=== PATIENT | female | born 1960 | race American Indian/Alaskan Native ===

== ENCOUNTER 2018-05-29 10:15 | Day surgery (SDC) | payer BC ==
[~2018-05-29 10:15] MED LIST: WATER FOR IRRIG STERILE IR ONE; WATER FOR IRRIG STERILE ONE
[2018-05-29] MEDS ORDERED: NACL 0.9% 1000 ML 1,000 ML IV SCH (11:00)
[2018-05-29] MEDS ORDERED: DIPRIVAN 10 MG/ML IV ONE ×5 (13:28→14:28)
[2018-05-29] MEDS ORDERED: GI SPOT IJ ONE (13:45)
--- NOTE | 2018-05-29 14:45 | Anesthesia Consultation ---
Anesthesia Consult and Med Hx Date of service: 05/29/18 - Airway Anesthetic Teeth Evaluation: Good, Poor ROM Head & Neck: Adequate Mental/Hyoid Distance: Adequate Mallampati Class: Class II Intubation Access Assessment: Probably Good - Pulmonary Exam CTA: Yes - Cardiac Exam Cardiac Exam: RRR - Pre-Operative Health Status ASA Pre-Surgery Classification: ASA2 Proposed Anesthetic Plan: MAC - Pulmonary Hx Smoking: No Hx Respiratory Symptoms: No - Cardiovascular System Hx Hypertension: No Hx Heart Attack/AMI: No Hx Angina: No - Central Nervous System Hx Neuromuscular Disorder: No - Gastrointestinal Hx Gastroesophageal Reflux Disease: No - Endocrine Hx Renal Disease: No Hx Liver Disease: No Hx Thyroid Disease: No - Hematic Hx Sickle Cell Disease: No - Other Systems Hx Alcohol Use: No - Additional Comments Anesthesia Medical History Comments: No GAC, No FHAC
[2018-05-29 15:20] VITALS: BP 112/63
--- NOTE | 2018-05-29 15:59 | History and Physical Report ---
History of Present Illness Date of examination: 05/29/18 Date of admission: 05/29/2018 Chief complaint: Personal history of large colon polyp. Patient needing polypectomy with endoscopic because her resection. History of present illness: Patient's a 57-year-old female who presented with a history of colon polyps. She had a colonoscopy recently was told that she had a 3.5 cm polyp. She was referred for surgical resection. She presented because she had a family member who had endoscopic mucosa resection she was reviewed and now presents for colonoscopy for endoscopic mucosa resection. She denies any complaints otherwise. Review of Systems Constitution: Negative for chills, decreased appetite, diaphoresis, fever, weakness and malaise/fatigue. HENT: Negative for sore throat. Eyes: Positive for blurred vision. Cardiovascular: Negative. Respiratory: Positive for shortness of breath. Endocrine: Negative. Hematologic/Lymphatic: Negative. Skin: Negative. Musculoskeletal: Positive for joint pain, joint swelling, myalgias and stiffness. Gastrointestinal: Negative. Genitourinary: Negative. Neurological: Positive for dizziness. Psychiatric/Behavioral: Negative. Allergic/Immunologic: Negative. All other systems reviewed and are negative. Physical Exam Constitutional: Se is oriented to person, place, and time. She appears well- developed and well-nourished. She appears comfortable in no distress HEENT: Head: Normocephalic and atraumatic. Mouth/Throat: No oropharyngeal exudate. Neck: Normal range of motion. Neck supple. No JVD present. Cardiovascular: Normal rate, regular rhythm and normal heart sounds. Pulmonary/Chest: Effort normal and breath sounds normal. Abdominal: Soft. Nontender. No hepatosplenomegaly, no other palpable masses, normal bowel sounds Musculoskeletal: Normal range of motion. Neurological: He is alert and oriented to person, place, and time. Skin: Skin is warm, dry and intact. Psychiatric: He has a normal mood and affect. Medications and Allergies Allergies Allergy/AdvReac Type Severity Reaction Status Date / Time No Known Allergies Allergy Verified 05/29/18 10:31 Home Medications Medication Instructions Recorded Confirmed Last Taken Type Adult Low Dose Aspirin EC 81 mg PO DAILY 05/29/18 05/29/18 04/12/18 History Vitamin D2 50,000 units PO QWEEK 05/29/18 05/29/18 04/12/18 History Active Meds: Active Medications Sodium Chloride (Nacl 0.9% 1000 Ml) 1,000 mls @ 50 mls/hr IV DIRECT FLORIN Last Admin: 05/29/18 11:17 Dose: 50 mls/hr Documented by: Exam - Constitutional Vitals: Temp Pulse Resp BP Pulse Ox 99.0 F 71 15 112/63 97 05/29/18 14:46 05/29/18 15:16 05/29/18 15:16 05/29/18 15:16 05/29/18 15:16 Assessment and Plan Assessment: Colorectal cancer screening. Plan: A full colonoscopy will be done to evaluate patient. The indications for colonoscopy have been reviewed with the patient. The potential benefits as well as possible complications related to the procedure have been discussed. Patient by history took adequate preparation. Additional recommendations will be made depending on the findings.
--- NOTE | 2018-05-29 16:29 | Discharge Summary ---
Short Stay Discharge Plan Activity: advance as tolerated Weight Bearing Status: Weight Bear as Tolerated Diet: regular Additional Instructions: Post Sedation D/C Instructions When you return home you may resume your regular diet unless otherwise directed. -Go directly home from the hospital and rest quietly. You may resume normal activities tomorrow. -Do NOT drive, return to work, operate any machinery or make any important personal or business decisions today. -Do NOT drink any alcohol or take nerve or sleeping drugs. They add to the effects of the medicine still present in your body. - NO NSAIDS(IBUPROFEN, GOODY POWDER,ETC) OR ASPIRIN NEXT 14 DAYS -CALL DR. DUNNE'S OFFICE TO CONFIRM APPOINT TO FOLLOW UP ON BIOPSIES Follow up with: PRIMARY CARE, [Primary Care Provider] - 7 Days
--- NOTE | 2018-05-29 16:29 | Operative Report ---
Operative Report Operative Report: Date of procedure: 05/29/2018 Procedure: Colonoscopy with submucosal injection, snare polypectomy with Hem oclip application for closure of defect at the polypectomy site, ablation of colon polyps, multiple hot biopsy polypectomies. Submucosal injection with tattoo of polypectomy site. Attending physician: Graeme Cormier M.D. Oil Developer: Graeme Cormier M.D. Indication: Patient is a 57-year-old female who presents with a personal history of a large colon polyp in the ascending colon status post colonoscopy and biopsy of the polyp showing a tubular adenoma. Patient had been referred for possible surgical resection, but prefers a non surgical approach. This colonoscopy serves to evaluate patient so that treatment may be directed based on the findings. Consent: Informed consent was obtained after advising the patient and family regarding nature of this procedure, its indications, potential benefits as well as possible complications including but not limited to bleeding perforation and adverse reaction to medication, infection as well as other cardiopulmonary complications. An informed written and verbal consent was then obtained after due opportunity was provided for questions and answers. Monitoring: Patient was monitored continuously with pulse oximetry and electrocardiographic recordings as well as blood pressure recordings. Vital signs remained stable throughout this procedure with no untoward events. Preoperative assessment: Patient was assessed immediately prior to this p rocedure for capacity to tolerate monitored anesthesia care and moderate sedation as well as general anesthesia. Patient's ASA classification is 2, Mallampati class is 2, Hyomental distance is 3. Instrument: [employer] video colonoscope Medications: Propofol given intravenously in divided doses. For details please refer to anesthesia records. Description of procedure: Patient was placed in the left lateral decubitus position after achieving sedation, a digital rectal examination was performed following which the colonoscope was introduced into the anal verge and advanced to the cecum which was identified by the cecal valve, the appendiceal orifice, as well as by the cecal strap and direct transillumination. The colonoscope was subsequently withdrawn with careful inspection of all mucosal surfaces. Patient tolerated this procedure well and was subsequently taken to the recovery room. The following findings were noted. Findings: Patient had a large sessile 3.5- 4 cm polyp in the proximal ascending colon. This was elevated with submucosal injection of saline and removed by snare electrocautery using a stiff hexagonal captivator snare and retrieved. The edge of the polyp site, was further treated with a hot biopsy forceps using avulsion technique, to remove any residual polyp tissue. Subsequently, the edges of the polypectomy site was then ablated completely. The defect at the polypectomy site was closed with multiple Hemoclips. In all, 5 hemoclips were used. After removing the polyp, the proximal and distal margins of the polypectomy site were then tattooed using submucosal injection of spot. In the sigmoid colon, patient had 3 flat polyps measuring 5-7 mm each. All these polyps were removed by hot biopsy polypectomy and retrieved. Also, 4 additional diminutive flat polyps were seen in the sigmoid colon. These were ablated completely in the sigmoid colon. In the rectum, patient had 3 additional flat polyps measuring 5-7 mm again. These again were removed by hot biopsy polypectomy and retrieved. Patient had some diminutive diverticula in the sigmoid and descending colon. The patient also had some mild diverticulosis in the ascending colon. The rest of the colon including the cecum was normal. On the retroflex view at the anal verge, patient had internal hemorrhoids. Impression: Proximal ascending colon polyp status post submucosal injection, snare polypectomy avulsion hot biopsy forceps and ablation of polypectomy site and Hemoclip application. Also tattoo of proximal and distal margins of polypectomy site. Sigmoid colon polyps status post multiple hot biopsy polypectomies Sigmoid colon polyp status post ablation Rectal polyps status post hot biopsy polypectomy Mild diverticulosis. Internal hemorrhoids Plan: Follow pathology report High-fiber diet. Repeat colonoscopy in 6-12 months
== END 2018-05-29 10:16 | disposition home or self-care (01) ==
LOC: GIO 10:15
PROVIDERS: ATTEND Internal Medicine Gastroenterology
DX: Z12.11 Encounter for screening for malignant neoplasm of colon (principal); D12.2 Benign neoplasm of ascending colon; K63.5 Polyp of colon; K62.1 Rectal polyp; K57.30 Diverticulosis of large intestine without perforation or abscess without bleeding; K64.8 Other hemorrhoids; Z79.899 Other long term (current) drug therapy; Z98.51 Tubal ligation status; Z98.890 Other specified postprocedural states; Z86.010 Personal history of colon polyps
CPT/HCPCS: 45381; 45384; 45385; 45388; 88305; J2704; J7030